=== PATIENT | male | born 1950 | race Caucasian/White ===

== ENCOUNTER → 2018-12-05 | Outpatient (CLI) | payer MEDICARE ==
[~2018-12-05] MED LIST: CYAN10005 PO; TURM500C4 PO
[2018-12-05 14:26] LABS: BASOPHILS # (AUTO) 0.02 x10^3/uL (0-0.1); BASOPHILS % (AUTO) 0 % (0-1); EOSINOPHILS # (AUTO) 0.08 x10^3/uL (0-0.4); EOSINOPHILS % (AUTO) 1 % (1-7); LYMPHOCYTES # (AUTO) 1.71 x10^3/uL (1-3.4); LYMPHOCYTES % (AUTO) 29 % (22-44); MD NO; MEAN CORPUSCULAR HEMOGLOBIN 33.2 pg (27.5-34.5); MEAN CORPUSCULAR HGB CONC 33.8 g/dL (33.2-36.2); MEAN CORPUSCULAR VOLUME 98.3 fL (81-97); MEAN PLATELET VOLUME 7.9 fL (7.4-10.4); MONOCYTES # (AUTO) 0.53 x10^3/uL (0.2-0.8); MONOCYTES % (AUTO) 9 % (2-9); NEUTROPHILS # (AUTO) 3.48 x10^3/uL (1.8-6.8); NEUTROPHILS % (AUTO) 60 % (42-75); PLATELET COUNT 294 x10^3/uL (130-400); RED BLOOD COUNT 4.78 x10^6/uL (4.38-5.82); RED CELL DISTRIBUTION WIDTH 13.1 % (9.4-14.8)
[2018-12-05 14:36] LABS: ALANINE AMINOTRANSFERASE 27 U/L (12-78); ALBUMIN 4.1 g/dL (3.4-5.0); ANION GAP 5 mmol/L (5-15); CHLORIDE 111 mmol/L (98-107)
[2018-12-05 14:39] LABS: ALKALINE PHOSPHATASE 74 U/L (45-117); BILIRUBIN,TOTAL 0.6 mg/dL (0.2-1.0); CREATININE 1.13 mg/dL (0.7-1.3); TOTAL PROTEIN 7.3 g/dL (6.4-8.2)
== END | disposition home or self-care (01) ==
LOC: STAR 13:21
PROVIDERS: ATTEND Urology
DX: Z01.818 Encounter for other preprocedural examination (principal); C61 Malignant neoplasm of prostate
CPT/HCPCS: 36415; 80053; 85025; 93005

== ENCOUNTER 2018-12-12 05:38 | Inpatient (IN) | payer MEDICARE ==
[~2018-12-12] VITALS: Ht 188 cm; Wt 83.7 kg
[2018-12-12] MEDS ORDERED: LACTATED RINGERS 1,000 ML IV SCH (06:33)
[2018-12-12] MEDS ORDERED: LIDOCAINE-MPF 1%, 2ML INFIL ONE (07:00)
[2018-12-12] MEDS ORDERED: MICROFIBRILLAR COLLAGEN 1 GM TP ONE (07:07)
[2018-12-12] MEDS ORDERED: BUPIVACAINE/PF 0.25% ONE (07:07)
[2018-12-12] MEDS ORDERED: THROMBIN 20,000 UNIT VIAL TP ONE (07:07)
[2018-12-12] MEDS ORDERED: EPINEPHRINE 1 MG/ML, 1ML ONE (07:07)
[2018-12-12] MEDS ORDERED: FENTANYL PF 250 MCG/5ML ONE (07:17)
[2018-12-12] MEDS ORDERED: MIDAZOLAM 1 MG/ML, 2ML ONE (07:17)
[2018-12-12] MEDS ORDERED: GABAPENTIN 300 MG CAPSULE PO ONE (07:30)
[2018-12-12] MEDS ORDERED: ACETAMINOPHEN 500 MG TABLET PO ONE (07:30)
[2018-12-12] MEDS ORDERED: OPIUM/BELLADONNA SUPP.RECT 16.2-60 MG ONE (07:36)
[2018-12-12] MEDS ORDERED: DIAZEPAM 5 MG/ML, 2ML IVPush PRN (08:30)
[2018-12-12] MEDS ORDERED: FENTANYL PF 100 MCG/2ML IV PRN (08:30)
[2018-12-12] MEDS ORDERED: HYDROmorphone 2 MG/ML, 1ML IVPush PRN (08:30)
[2018-12-12] MEDS ORDERED: ONDANSETRON 2MG/ML, 2ML IV PRN (08:30)
[2018-12-12] MEDS ORDERED: PROMETHAZINE 25 MG/ML, 1ML IV PRN (08:30)
[2018-12-12] MEDS ORDERED: OXYcodone 5 MG/5 ML ORAL.SOL UDC PO PRN (08:30)
[2018-12-12] MEDS ORDERED: ONDANSETRON ODT 8 MG PO PRN (08:30)
[2018-12-12] MEDS ORDERED: FENTANYL PF 100 MCG/2ML ONE ×2 (09:06→11:27)
[2018-12-12] MEDS ORDERED: PROPOFOL 10 MG/ML, 20ML ONE (10:40)
[2018-12-12] MEDS ORDERED: ROCURONIUM 10MG/ML,5ML ONE (10:40)
[2018-12-12] MEDS ORDERED: DEXAMETHASONE 4 MG/ML, 1ML ONE (10:40)
[2018-12-12] MEDS ORDERED: SUCCINYLCHOLINE 20 MG/ML, 10ML ONE (10:40)
[2018-12-12] MEDS ORDERED: GLYCOPYRROLATE 0.2MG/1ML, 5ML ONE (10:40)
[2018-12-12] MEDS ORDERED: NEOSTIGMINE 1 MG/ML, 10ML ONE (10:40)
[2018-12-12] MEDS ORDERED: CEFAZOLIN 1,000 MG ONE (10:40)
[2018-12-12] MEDS ORDERED: ONDANSETRON 2MG/ML, 2ML ONE (10:40)
[2018-12-12] MEDS ORDERED: OXYcodone 5 MG/5 ML ORAL.SOL UDC ONE (11:28)
[2018-12-12] MEDS ORDERED: morphine SULFATE 10 MG/ML, 1ML IV PRN (13:30)
[2018-12-12] MEDS ORDERED: OPIUM/BELLADONNA SUPP.RECT 16.2-30 MG PR PRN (13:30)
[2018-12-12] MEDS ORDERED: OXYcodone IR 5MG TABLET PO PRN (13:30)
[2018-12-12] MEDS: D5%-0.45NACL+KCL 20MEQ 1,000 ML IV SCH ×2 (13:53→22:54)
[2018-12-12] MEDS: ACETAMINOPHEN 500 MG TABLET PO SCH ×2 (13:53→20:57)
[2018-12-12 13:55] VITALS: BP 130/64
[2018-12-12 19:02] VITALS: BP 114/54
[2018-12-13 00:43] VITALS: BP 113/51
[2018-12-13] MEDS: ACETAMINOPHEN 500 MG TABLET PO SCH ×3 (02:16→14:19)
[2018-12-13 03:21] VITALS: BP 108/57
[2018-12-13 05:22] LABS: CHLORIDE 109 mmol/L (98-107)
[2018-12-13 05:27] LABS: ANION GAP 8 mmol/L (5-15); CALCIUM 8.3 mg/dL (8.5-10.1); CREATININE 1.02 mg/dL (0.7-1.3)
[2018-12-13] MEDS: D5%-0.45NACL+KCL 20MEQ 1,000 ML IV SCH ×2 (05:59→15:16)
[2018-12-13 07:46] VITALS: BP 108/64
[2018-12-13] MEDS ORDERED: ENOXAPARIN 40 MG/0.4 ML SQ SCH (08:00)
[2018-12-13 14:36] VITALS: BP 150/80
[2018-12-13] MEDS ORDERED: HYDR-3240 PO (17:07)
[2018-12-13] MEDS ORDERED: DOCU-131 PO (17:07)
[2018-12-13 17:46] VITALS: BP 155/83
== END 2018-12-13 18:10 | disposition home or self-care (01) | DRG 708 ==
LOC: OUT 05:38 → 4NOR 12:50 → OUT 12:56 → 4NOR 12:56
PROVIDERS: ADMIT Urology; ATTEND Urology
PROC: 8E0W4CZ Robotic Assisted Procedure of Trunk Region, Percutaneous Endoscopic Approach (ICD-10-PCS; 2018-12-12)
PROC: 0TQD4ZZ Repair Urethra, Percutaneous Endoscopic Approach (ICD-10-PCS; 2018-12-12)
PROC: 0VT04ZZ Resection of Prostate, Percutaneous Endoscopic Approach (ICD-10-PCS; principal; 2018-12-12 07:30)
DX: C61 Malignant neoplasm of prostate (principal); D50.0 Iron deficiency anemia secondary to blood loss (chronic)
CPT/HCPCS: 36415; 80048; 85014; 85018; 86850; 86900; 88309; C1729; G0378; J0171; J0690; J1100; J1650; J2250; J2405; J2704; J2710; J3010; J3490; C1760; J0330; J3480; J7120

== ENCOUNTER 2018-12-19 08:19 | Outpatient (CLI) | payer MEDICARE ==
[~2018-12-19 08:19] MED LIST changes: +DOCU-131 PO; +HYDR-3240 PO
== END 2018-12-19 23:59 | disposition home or self-care (01) ==
LOC: RAD 08:19
PROVIDERS: ATTEND Urology
DX: C61 Malignant neoplasm of prostate (principal)
CPT/HCPCS: 51600; 74430; Q9958